=== PATIENT | female | born 1955 | race Caucasian/White ===

== ENCOUNTER 2022-12-06 12:46 | Emergency (ER) | payer BC ==
[~2022-12-06] VITALS: Ht 174 cm; Wt 135.4 kg
[2022-12-06 16:09] VITALS: BP 150/101
[2022-12-06] MEDS ORDERED: LEVO200T8 PO (16:33)
== END 2022-12-06 16:40 | disposition home or self-care (01) ==
LOC: ER 12:47
DX: E03.9 Hypothyroidism, unspecified (principal)
CPT/HCPCS: 93005; 99283